=== PATIENT | female | born 1975 | race African-American/Black ===

== ENCOUNTER 2022-02-12 19:28 | Emergency (ER) | payer BC ==
[2022-02-12] MEDS ORDERED: diphenhydrAMINE 50 MG/ML VIAL ONE (20:40)
[2022-02-12] MEDS ORDERED: Metoclopramide HCl 10 MG/2 ML VIAL ONE (20:40)
[2022-02-12] MEDS ORDERED: Ketorolac Tromethamine 30 MG/ML VIAL ONE (20:40)
[2022-02-12] MEDS ORDERED: Acetaminophen 500 MG TAB ONE (20:40)
[2022-02-12 21:15] LABS: #Eosinphils 0.1 thou/uL (0.0-0.7); #Lymphocytes 0.4 thou/uL (1.20-3.40); #Monocytes 0.6 thou/uL (0.11-0.59); #Neutrophils 3.4 thou/uL (1.40-6.50); %Basophils 0.2 % (0.0-1.0); %Eosinophils 3.1 % (0.0-10.0); %Neutrophils 75.6 % (42.0-75.0); Hemoglobin 12.2 g/dL (12.0-16.0); Mean Corpuscular HGB CONC 32.4 g/dL (32.0-36.0); Mean Corpuscular Hemoglobin 28.5 pg (27.0-31.0); Mean Corpuscular Volume 87.8 fL (78.0-98.0); Mean Platelet Volume 8.5 fL (7.4-10.4); Platelet Count 191 thou/uL (130-400); White Blood Cell (WBC) Count 4.4 thou/uL (4.8-10.8)
[2022-02-12 21:16] LABS: Bacteria/HPF None Seen HPF (None Seen); Bilirubin Negative (Negative); Blood, Urine 1+ (Negative); Clarity Clear (Clear); Glucose, Urine (Dipstick) Normal (Negative); Ketone, Urine Negative (Negative); Leukocyte Negative Leu/uL (Negative); Nitrite Negative (Negative); Protein, Urine (Dipstick) Negative (Neg-Trace); Squamous Epithelial None Seen HPF (0-3); Urobilinogen Normal mg/dL (Less than 2); WBC/HPF 0-3 HPF (0-3)
[2022-02-12 21:35] LABS: ALT (SGPT) 38 U/L (8-55); AST (SGOT) 40 U/L (5-34); Alkaline Phosphatase 164 U/L (40-110); Anion Gap 13 mmol/L (10-20); BUN (Urea Nitrogen) 5 mg/dL (7.0-18.7); Bilirubin, Total 1.4 mg/dL (0.2-1.2); Calc. Creatinine Clearance 0 mL/min (70-130); Calcium 9.2 mg/dL (7.8-10.44); Carbon Dioxide 23 mmol/L (22-29); Chloride 105 mmol/L (98-107); Estimated GFR 107; Glucose 113 mg/dL (70-105); Potassium 3.6 mmol/L (3.5-5.1); Sodium 137 mmol/L (136-145)
[2022-02-12 21:36] LABS: BHCG - Serum Negative (NEGATIVE)
[2022-02-12 21:37] LABS: Pregs Control Background? CLEAR/WHITE (CLR/WHITE); Pregs Control Bar Appear? YES (CONTROL BAR)
[2022-02-12] MEDS ORDERED: Midazolam HCl 2 mg/2 ml Vial ONE (21:38)
[2022-02-12 22:35] LABS: CSF Source CSF; Clarity Clear (Clear); Tube # 1; Tube # 4
[2022-02-12 22:47] LABS: CSF, Glucose 64 mg/dl (40-70); CSF, Protein 18 mg/dL (15-40)
[2022-02-12 22:58] LABS: CSF RBC Count - Manual 322 /cu.mm (None Seen); CSF WBC/NonHematics Count-Man 3 /cu.mm (0-5)
[2022-02-12 22:59] LABS: CSF RBC Count - Manual 2 /cu.mm (None Seen); CSF WBC/NonHematics Count-Man 1 /cu.mm (0-5)
[2022-02-12 23:13] LABS: SARS-CoV-2 NAA Rapid Test DETECTED (NotDetected)
[2022-02-13 00:50] LABS: Color Of CSF Supernatant COLORLESS (Colorless); Tube # 2; Unspun CSF Color COLORLESS (Colorless)
== END 2022-02-12 23:23 | disposition home or self-care (01) ==
LOC: ERS 19:28
DX: U07.1 COVID-19 (principal); R79.89 Other specified abnormal findings of blood chemistry; R31.9 Hematuria, unspecified; I10 Essential (primary) hypertension; F17.210 Nicotine dependence, cigarettes, uncomplicated
CPT/HCPCS: 36415; 62270; 70450; 80053; 81003; 81015; 82945; 83605; 84157; 84703; 85025; 87040; 87070; 87086; 87205; 89051; 93005; 96374; 96375; J1200; J1885; J2250; J2765

== ENCOUNTER 2023-07-04 14:47 | Emergency (ER) | payer SELFPAY ==
[2023-07-04] MEDS ORDERED: Ibuprofen 200 MG TAB ONE (15:25)
[2023-07-04 16:12] LABS: SARS-CoV-2 NAA Rapid Test Not Detected (NotDetected)
[2023-07-04] MEDS ORDERED: Acetaminophen 500 MG TAB ONE (16:16)
== END 2023-07-04 16:34 | disposition home or self-care (01) ==
LOC: ERS 14:47
DX: J10.1 Influenza due to other identified influenza virus with other respiratory manifestations (principal); I10 Essential (primary) hypertension; F17.210 Nicotine dependence, cigarettes, uncomplicated
CPT/HCPCS: 99283